=== PATIENT | female | born 1990 | race African-American/Black ===

== ENCOUNTER 2016-06-10 21:16 | Emergency (ER) | payer BC, OTHER ==
[2016-06-10 21:22] VITALS: BP 111/59; PULSE 57; TEMP 98; BMI 23.8
--- NOTE | 2016-06-10 21:47 | PDOC ---
History of Present Illness - General Chief Complaint: Ear Problem Stated Complaint: RT EAR PAIN Time Seen by Provider: 06/10/16 21:35 History Source: Patient Exam Limitations: No Limitations - History of Present Illness Initial Comments: 06/10/16 21:46 Chief complaint: Sore throat and right ear pain History of present illness: Patient is a 26-year-old female with no significant medical history here today complaining of sore throat and her right ear pain with tenderness of her lymph nodes near her right ear 3 days. Patient denies any cough, nasal congestion, fever difficulty swallowing or breathing or any nausea vomiting or diarrhea. Patient reports that a few people at her job have been ill. Patient denies any recent travel. Timing/Duration: intermittent (for 3 days) Severity: mild Associated Symptoms: reports: other (sore throat, rt. ear pain) Past History - Past Medical History Allergies/Adverse Reactions: Allergies Allergy/AdvReac Type Severity Reaction Status Date / Time No Known Allergies Allergy Verified 06/10/16 21:20 Home Medications: Ambulatory Orders NK [No Known Home Medication] 02/14/15 - Psycho/Social/Smoking Cessation Hx Anxiety: No Suicidal Ideation: No Smoking Status: No Smoking History: Never smoked Number of Cigarettes Smoked Daily: 0 Information on smoking cessation initiated: No Hx Alcohol Use: Yes Drug/Substance Use Hx: No Substance Use Type: Alcohol Review of Systems - Review of Systems Able to Perform ROS?: Yes Constitutional: No: Symptoms Reported HEENTM: Yes: Ear Pain (rt. ), Throat Pain Respiratory: No: Symptoms reported Cardiac (ROS): No: Symptoms Reported ABD/GI: No: Symptoms Reported : No: Symptoms Reported Musculoskeletal: No: Symptoms Reported Integumentary: No: Symptoms Reported Neurological: No: Symptoms reported *Physical Exam - Vital Signs Last Vital Signs Temp Pulse Resp BP Pulse Ox 98.0 F 57 L 14 111/59 99 06/10/16 21:20 06/10/16 21:20 06/10/16 21:20 06/10/16 21:20 06/10/16 21:20 - Physical Exam General Appearance: Yes: Appropriately Dressed HEENT: positive: TMs Normal (b// ), Pharyngeal Erythema. negative: Tonsillar Exudate, Tonsillar Erythema, Nasal Congestion, Rhinorrhea Neck: positive: Lymphadenopathy (R). negative: Lymphadenopathy (L) Respiratory/Chest: positive: Lungs Clear, Normal Breath Sounds. negative: Chest Tender, Respiratory Distress Cardiovascular: positive: Regular Rhythm, Regular Rate, S1, S2 Integumentary: positive: Normal Color Neurologic: positive: Alert, Normal Response, Responsive Medical Decision Making - Medical Decision Making 06/10/16 21:47 Patient is a 26-year-old female with no significant medical history here today complaining of sore throat and her right ear pain with tenderness of her lymph nodes near her right ear 3 days. Patient denies any cough, nasal congestion, fever difficulty swallowing or breathing or any nausea vomiting or diarrhea. Patient reports that a few people at her job have been ill. Patient denies any recent travel. Rule out strep throat viral pharyngitis, rt lympanopathy rt. cervical chain Plan: Throat C&S negative for strep 06/10/16 22:27 *DC/Admit/Observation/Transfer Diagnosis at time of Disposition: Viral pharyngitis, Lymphangitis - Discharge Dispostion Disposition: HOME Condition at time of disposition: Stable - Patient Instructions Additional Instructions: Rest and drink a lot of fluids Take acetaminophen as needed as directed by manufacturers service representative for pain Follow up with your primary within the next few days Return to emergency room if symptoms worsen any difficulty swallowing or any new symptoms develop Patient voiced understanding of discharge instructions all questions were answered
== END 2016-06-10 22:33 | disposition home or self-care (01) ==
LOC: JERFT 21:16
DX: J02.8 Acute pharyngitis due to other specified organisms (principal); B97.89 Other viral agents as the cause of diseases classified elsewhere; R59.1 Generalized enlarged lymph nodes
CPT/HCPCS: 87070; 87430; 99281-25

== ENCOUNTER 2016-06-19 22:52 | Emergency (ER) | payer OTHER ==
[2016-06-19 23:08] VITALS: BMI 24.1
--- NOTE | 2016-06-20 02:10 | PDOC ---
History of Present Illness - General Chief Complaint: Respiratory Stated Complaint: CHEST PAIN Time Seen by Provider: 06/20/16 00:21 History Source: Patient Exam Limitations: No Limitations - History of Present Illness Initial Comments: 06/20/16 02:05 26yo Female patient presents to ED c/o chest pains. Patient reports experiencing chest pains on and off for the past couple months, but today feels like an ache. She denies n/v/d, sweating, change in appetite, fever, diff breathing, back pain, dysuria, hematuria. LNMP: 1 week ago. Denies any other complaints. Timing/Duration: constant Severity: moderate Modifying Factors: worse with: cold therapy, eating, immobilization, medication , movement, rest, other Associated Symptoms: reports: chest pain. denies: denies symptoms, cough, diaphoresis, fever/chills, headaches, loss of appetite, malaise, nausea/vomiting , rash, seizure, shortness of breath, syncope, weakness, other Past History - Travel Traveled outside of the country in the last 30 days: No Close contact w/someone who was outside of country & ill: No - Past Medical History Allergies/Adverse Reactions: Allergies Allergy/AdvReac Type Severity Reaction Status Date / Time No Known Allergies Allergy Verified 06/19/16 23:06 Home Medications: Ambulatory Orders Esomeprazole Strontium 24.65 mg PO DAILY #30 capsule. 06/20/16 - Psycho/Social/Smoking Cessation Hx Anxiety: No Suicidal Ideation: No Smoking Status: No Smoking History: Never smoked Number of Cigarettes Smoked Daily: 0 Information on smoking cessation initiated: No Hx Alcohol Use: No Drug/Substance Use Hx: No Substance Use Type: Alcohol Review of Systems - Review of Systems Able to Perform ROS?: Yes Is the patient limited Korean proficient: No Constitutional: No: Chills, Fever Respiratory: No: Cough, Orthopnea, Shortness of Breath, SOB at Rest, Stridor, Wheezing, Hemoptysis Cardiac (ROS): Yes: Chest Pain. No: Lightheadedness, Palpitations, Syncope, Chest Tightness ABD/GI: No: Constipated, Diarrhea, Nausea, Poor Appetite, Poor Fluid Intake, Rectal Bleeding, Vomiting, Tarry Stools : No: Burning, Dysuria, Discharge, Frequency, Flank Pain, Hematuria, Urgency Musculoskeletal: No: Back Pain, Joint Pain, Joint Swelling, Muscle Pain, Muscle Weakness, Neck Pain Integumentary: No: Bruising, Dryness, Erythema, Rash Neurological: No: Headache, Numbness, Seizure, Weakness, Ataxia All Other Systems: Reviewed and Negative *Physical Exam - Vital Signs Last Vital Signs Temp Pulse Resp BP Pulse Ox 98.7 F 72 14 109/66 96 06/19/16 23:06 06/19/16 23:06 06/19/16 23:06 06/19/16 23:06 06/19/16 23:06 - Physical Exam General Appearance: Yes: Nourished, Appropriately Dressed. No: Apparent Distress, Mild Distress, Moderate Distress, Severe Distress Neck: positive: Trachea midline, Supple. negative: Decreased range of motion, Stridor, Lymphadenopathy (R), Lymphadenopathy (L) Respiratory/Chest: positive: Lungs Clear, Normal Breath Sounds. negative: Respiratory Distress, Accessory Muscle Use, Labored Respiration, Rapid RR Cardiovascular: positive: Regular Rhythm, Regular Rate. negative: Edema, JVD, Murmur Gastrointestinal/Abdominal: positive: Normal Bowel Sounds, Soft. negative: Distended, Guarding, Rebound, Tenderness Lymphatic: negative: Adenopathy Musculoskeletal: positive: Normal Inspection. negative: CVA Tenderness Extremity: positive: Normal Capillary Refill, Normal Inspection, Normal Range of Motion, Pelvis Stable. negative: Pedal Edema, Swelling Integumentary: positive: Normal Color, Dry, Warm. 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 NML intact, Fully Oriented, Alert, Normal Mood/ Affect, Normal Response, Motor Strength 5/5 ED Treatment Course - LABORATORY CBC & Chemistry Diagram: 06/20/16 02:00 06/20/16 02:00 - RADIOLOGY Radiology Studies Ordered: Category Date Time Status GALLBLADDER US [US] Stat Ultrasound 06/20/16 00:54 Taken Medical Decision Making - Medical Decision Making 06/20/16 02:47 Name: Trace Hurtado : 1990 Sex: F Study Date & Time: 06/20/201600:59:11 Description: GALLBLADDER US Manager Pacu: ([email or web address]) Begin of Report Content Referring Physician: Ovidio Ruiz Patient Name: Genesis Woodward THIS IS A PRELIMINARY REPORT FROM IMAGING SENIOR BIOSTATISTICIAN EXAM: Ultrasound abdomen right upper quadrant IMAGES: 37 EXAM DATE AND TIME: 2016-06-20 00:59:11.0 REASON FOR EXAM: Chest pain COMPARISON: None. FINDINGS: There are no stones or sludge visualized in the gallbladder. The gallbladder wall is normal in thickness measuring 2 mm. There is no pericholecystic fluid. Presence or absence of a sonographic Monae's sign was not reported The common bile duct is within normal limits measuring 3.6 mm. The liver, spleen, pancreas and visualized portions of the abdominal aorta and IVC are unremarkable THIS DOCUMENT HAS BEEN ELECTRONICALLY SIGNED Austin Weller MD 06/20/2016 01:19 REY Devries Please call Imaging Radio News Writer [phone] ([phone]) with questions. *DC/Admit/Observation/Transfer Diagnosis at time of Disposition: Atypical chest pain - Discharge Dispostion Disposition: HOME Condition at time of disposition: Good Admit: No - Prescriptions Prescriptions: Esomeprazole Strontium 24.65 mg PO DAILY #30 capsule.dr - Patient Instructions Printed Discharge Instructions: DI for Atypical Chest Pain Additional Instructions: FOLLOW UP WITH YOUR PRIMARY CARE PROVIDER. TAKE MEDICATIONS PRESCRIBED. Print Language: GHANAIAN - Post Discharge Activity Work/School Note: Back to Work
[2016-06-20 02:16] LABS: URINE APPEARANCE CLEAR; URINE BILIRUBIN NEGATIVE (NEGATIVE); URINE COLOR LTYELLOW; URINE GLUCOSE (UA) NEGATIVE (NEGATIVE); URINE KETONE TRACE (NEGATIVE); URINE NITRITE NEGATIVE (NEGATIVE); URINE PROTEIN NEGATIVE (NEGATIVE); URINE UROBILINOGEN NEGATIVE E.U./dl (0.2-1.0)
[2016-06-20 02:17] LABS: MCH 31.2 pg (25.7-33.7); MCHC 33.6 g/dl (32.0-36.0); MEAN CELL VOLUME 92.9 fl (80-96); MEAN PLT VOLUME 7.7 fl (7.5-11.1); PLATELET COUNT 293 K/MM3 (134-434); RDW 12.5 % (11.6-15.6); WHITE BLOOD COUNT 6.1 K/mm3 (4.0-10.0)
[2016-06-20 02:22] LABS: URINE BLOOD 1+ (NEGATIVE); URINE LEUK ESTERASE 1+ (NEGATIVE)
[2016-06-20 02:25] LABS: URINE HYALINE CAST 1 /lpf; URINE MUCUS RARE; URINE RBC 5 /hpf (0-3); URINE WBC 4 /hpf (3-5)
[2016-06-20 02:42] LABS: CALCIUM 8.5 mg/dL (8.5-10.1); CREATININE 0.7 mg/dL (0.55-1.02)
[2016-06-20 03:01] LABS: TROPONIN I < 0.02 ng/ml (0.00-0.05)
[2016-06-20 03:11] VITALS: BP 99/71; PULSE 92; TEMP 98
--- NOTE | 2016-06-20 16:14 | EKG ---
Test Reason : Blood Pressure : / mmHG Vent. Rate : 070 BPM Atrial Rate : 070 BPM P-R Int : 162 ms QRS Dur : 080 ms QT Int : 396 ms P-R-T Axes : 016 058 029 degrees QTc Int : 427 ms NORMAL SINUS RHYTHM T WAVE ABNORMALITY, CONSIDER ANTERIOR ISCHEMIA ABNORMAL ECG WHEN COMPARED WITH ECG OF 14-FEB-2015 18:08, INVERTED T WAVES HAVE REPLACED NONSPECIFIC T WAVE ABNORMALITY IN ANTERIOR LEADS Confirmed by YASMINE LINDO, ROCIO ([id number]) on 06/20/2016 4:14:24 PM Referred By: Confirmed By:ROCIO UNDERWOOD MD
== END 2016-06-20 03:11 | disposition home or self-care (01) ==
LOC: JER 22:52
DX: R07.89 Other chest pain (principal)
CPT/HCPCS: 36415; 76705-TC; 80048; 81003; 81015; 82150; 82550; 83690; 84484; 84703; 85027; 93005; 93010; 99281-25

== ENCOUNTER 2019-03-11 20:29 | Emergency (ER) | payer OTHER ==
--- NOTE | 2019-03-11 20:51 | PDOC ---
Rapid Medical Evaluation Chief Complaint: Pain Time Seen by Provider: 03/11/19 20:49 Medical Evaluation: Allergies Allergy/AdvReac Type Severity Reaction Status Date / Time No Known Allergies Allergy Verified 06/19/16 23:06 03/11/19 20:49 I have performed a brief in-person evaluation of this patient. The patient presents with a chief complaint of:right ankle pain x 2 days, inversion Pertinent physical exam findings: pain to lateral and med malleolus I have ordered the following: ankle Xray The patient will proceed to the ED for further evaluation. Discharge Disposition - Diagnosis Ankle pain, right - Discharge Dispostion Condition at time of disposition: Stable - Referrals - Patient Instructions - Post Discharge Activity
[2019-03-11 20:56] VITALS: BP 98/63; PULSE 66; TEMP 98.2; BMI 22.1
--- NOTE | 2019-03-11 21:26 | PDOC ---
History of Present Illness - General Chief Complaint: Pain Stated Complaint: RT ANKLE PAIN Time Seen by Provider: 03/11/19 20:49 History Source: Patient - History of Present Illness Initial Comments: 03/11/19 21:30 Chief complaint: Right ankle injury Patient is a healthy 28-year-old female who states she twisted her ankle 2 days ago and is painful to walk. Patient has not taken any pain medicine. Patient denies any other injuries. GENERAL/CONSTITUTIONAL: No fever, weakness. dizziness HEAD, EYES, EARS, NOSE AND THROAT: No change in vision. No ear pain or discharge. No sore throat. CARDIOVASCULAR: No chest pain RESPIRATORY: No shortness of breath or cough GASTROINTESTINAL: No pain, nausea, vomiting, diarrhea or constipation GENITOURINARY: No dysuria MUSCULOSKELETAL: No neck or back pain, + right ankle SKIN: No rash NEUROLOGIC: No headache, vertigo, loss of consciousness, or loss of sensation. GENERAL: The patient is awake, alert, and fully oriented, in no acute distress. HEAD: Normal with no signs of trauma. EYES: Pupils equal, round and reactive to light, sclera anicteric, conjunctiva clear. ENT: pharynx: no erythema, no exudate, uvula midline NECK: supple CHEST: clear, nontender, rr ABD: soft, nontender BACK: no tenderness or signs of injury EXTREMITIES: Right ankle with mild lateral malleolar swelling, tenderness, no fifth metatarsal tenderness, no tenderness over the dorsum of the foot, no tenderness to the rest of the right lower leg. Neurovascular intact. Rest of extremities, normal range of motion, no edema. NEUROLOGICAL: Normal speech, nonfocal, favoring right leg SKIN: Warm, Dry Past History - Past Medical History Allergies/Adverse Reactions: Allergies Allergy/AdvReac Type Severity Reaction Status Date / Time No Known Allergies Allergy Verified 03/11/19 21:29 Home Medications: Ambulatory Orders NK [No Known Home Medication] 03/11/19 COPD: No - Psycho Social/Smoking Cessation Hx Smoking Status: No Smoking History: Never smoked Have you smoked in the past 12 months: No Number of Cigarettes Smoked Daily: 0 Information on smoking cessation initiated: No Hx Alcohol Use: No Drug/Substance Use Hx: No Substance Use Type: Alcohol *Physical Exam - Vital Signs Last Vital Signs Temp Pulse Resp BP Pulse Ox 98.2 F 66 18 98/63 100 03/11/19 20:50 03/11/19 20:50 03/11/19 20:50 03/11/19 20:50 03/11/19 20:50 Procedures - Splinting Splint Location: Right: Ankle Pre-Proc Neuro Vasc Exam: normal Pre-Made Type: aircast Post-Proc Neuro Vasc Exam: normal Medical Decision Making - Medical Decision Making 03/11/19 21:31 Healthy 28-year-old female with right ankle injury, x-ray ordered X-ray shows no acute fracture, patient placed in Aircast, did not want crutches , able to ambulate better with Aircast Discussed issues, findings, results, applicable medications and treatments and follow-up. All these were understood and all questions were answered Discharge - Discharge Information Problems reviewed: Yes Clinical Impression/Diagnosis: Ankle pain, right Qualifiers: Chronicity: acute Qualified Code(s): M25.571 - Pain in right ankle and joints of right foot Condition: Stable Disposition: HOME - Admission No - Follow up/Referral Referrals: Marcia Land [Primary Care Provider] - Angus Hassan MD [Staff Physician] - - Patient Discharge Instructions Patient Printed Discharge Instructions: Arthrodesis of Foot and Ankle -- Open Surgery Additional Instructions: Elevate, wear splint You can apply ice for 20 minutes every 2 hours for the next 2 days Motrin 600 mg every 6 hours for pain. Call the orthopedist tomorrow - Post Discharge Activity
== END 2019-03-11 21:45 | disposition home or self-care (01) ==
LOC: JER 20:29
PROC: 2W3QX1Z Immobilization of Right Lower Leg using Splint (ICD-10-PCS; principal; 2019-03-11)
DX: M25.571 Pain in right ankle and joints of right foot (principal); X50.1XXA Overexertion from prolonged static or awkward postures, initial encounter; Y93.89 Activity, other specified; Y92.89 Other specified places as the place of occurrence of the external cause; Y99.8 Other external cause status
CPT/HCPCS: 73610-TC-RT-FY; 99282-25

== ENCOUNTER 2019-04-23 15:53 | Emergency (ER) | payer OTHER ==
[2019-04-23 16:00] VITALS: BP 108/73; PULSE 61; TEMP 98; BMI 21.6
--- NOTE | 2019-04-23 16:02 | PDOC ---
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
[2019-04-23 16:32] LABS: BASO % 0.3 % (0-2.0); EOS % 2.1 % (0-4.5); HEMATOCRIT 37.6 % (32.4-45.2); HEMOGLOBIN 12.4 GM/dL (10.7-15.3); MCH 31.7 pg (25.7-33.7); MCHC 33.1 g/dl (32.0-36.0); MEAN PLT VOLUME 7.8 fl (7.5-11.1); MONO % 3.4 % (3.8-10.2); NEUT % 77.2 % (42.8-82.8); PLATELET COUNT 355 K/MM3 (134-434); RBC 3.92 M/mm3 (3.60-5.2); RDW 12.6 % (11.6-15.6); WHITE BLOOD COUNT 7.7 K/mm3 (4.0-10.0)
[2019-04-23 16:58] LABS: ALBUMIN 4.2 g/dl (3.4-5.0); BILIRUBIN,TOTAL 0.2 mg/dL (0.2-1); BLOOD UREA NITROGEN 10.5 mg/dL (7-18); CALCIUM 9.4 mg/dL (8.5-10.1); CREATININE 0.7 mg/dL (0.55-1.3); POTASSIUM 4.4 mmol/L (3.5-5.1); TOT PROT 7.5 g/dl (6.4-8.2)
[2019-04-23] MEDS ORDERED: MAG HYDROX/AL HYDROX/SIMETH 30 ML UNIT-DOSE CUP PO ONE (17:09)
[2019-04-23] MEDS ORDERED: IBUPROFEN 600 MG TABLET (FP) PO ONE ×2 (17:09→17:11)
[2019-04-23] MEDS ORDERED: MAG HYDROX/AL HYDROX/SIMETH 30 ML UNIT-DOSE CUP ONE (17:12)
--- NOTE | 2019-04-23 17:17 | PDOC ---
Documentation entered by Keiko Elder SCRIBE, acting as scribe for Sylwia Kitchen MD. Sylwia Kitchen MD: This documentation has been prepared by the Jerrod knox Xhesika, SCRIBE, under my direction and personally reviewed by me in its entirety. I confirm that the documentation accurately reflects all work, treatment, procedures, and medical decision making performed by me. History of Present Illness - General Chief Complaint: Pain Stated Complaint: ABD PAIN Time Seen by Provider: 04/23/19 15:58 History Source: Patient Exam Limitations: No Limitations - History of Present Illness Initial Comments: 04/23/19 17:20 HPI The patient is a 29 year old female with no past medical history who presents to the ED with LLQ abdominal pain and bloating since 9am. Pt describes her pain as crampy, feels like contractions, associated with back pain and headache , worsened with lifting her legs. Pt notes she has always endorsed constipation and had gastro problems all her life. pt notes she was seen at urgent care 2 years ago for similar symptoms and was told to follow up with gastroenteritis but never did. Pt notes her period finished 2 days ago. Pt notes her last normal BM was yesterday and it was dark in color. Pt notes she has been taking apetamin to gain weight. Pt denies lifting heavy weights. Denies fever, chills, chest pain, SOB, palpitations, dizziness, weakness, N, V, D, bladder and bowel problems, focal weakness/paresthesias, leg swelling/pain, rash. No sick contacts or travel. No new changes in medications. No suspicious food intake Allergies: None Past Medical History/PSH: none Social history: Lives with family. No tobacco, ETOH or drug use. Meds: as documented in EMR Family history: noncontributory Review of systems Constitutional: no fevers or chills. No weakness HEENT: no headache or dizziness. No congestion. No visual/hearing disturbances. CVS: no cp or syncope. Resp: no sob. No cough. Gastrointestinal: + L lower abdominal pain, + bloating. No nausea, vomiting, diarrhea. Genitourinary: no urinary sx, hematuria. MUSCULOSKELETAL: No joint pain and swelling. No neck. +back pain. SKIN: no redness or skin changes, no discharge, no rash. No wounds. Hematologic: no easy bruising/bleeding. NEUROLOGIC: +headache. No dizziness, LOC or altered mental status. No weakness, numbness or tingling. Psych: no anxiety or depression Allergic/Immunologic: no allergies All other systems reviewed and negative, or as documented in HPI. Physical exam General: Well appearing, awake and alert, NAD. HEENT: NCAT, PERRL, EOMI, clear conjunctiva, anicteric, moist mucus membranes, clear oropharynx, no oral lesions.. Neck: neck supple, FROM Resp: CTAB, normal and even respirations, no respiratory distress CVS: RRR, no murmurs, 2+ peripheral pulses throughout, no peripheral edema Abdomen: + LLQ tenderness to palpation. +typanic. soft, ND, no rebound or guarding. No CVAT. No palpable hernia Back: nontender, normal inspection and ROM Female : normal external genitalia, no lesions, clear vaginal vault, no CMT, no adnexal tenderness. Smooth and pink cervix, closed. MSK: no edema, [place] x4, ROM intact. No clubbing or cyanosis. normal bulk and tone. Extremities: no calf tenderness Neuro: alert, oriented appropriately; no focal neurologic deficits Psych: Calm and cooperative Skin: warm and well perfused, cap refill <2 sec, normal color 04/23/19 17:24 Past History - Past Medical History Allergies/Adverse Reactions: Allergies Allergy/AdvReac Type Severity Reaction Status Date / Time No Known Allergies Allergy Verified 04/23/19 16:00 Home Medications: Ambulatory Orders Mag Hydrox/Al Hydrox/Simeth [Mylanta Suspension -] 30 ml PO Q6H PRN #1 bottle COPD: No - Psycho Social/Smoking Cessation Hx Smoking Status: No Smoking History: Never smoked Have you smoked in the past 12 months: No Number of Cigarettes Smoked Daily: 0 Hx Alcohol Use: No Drug/Substance Use Hx: No Substance Use Type: Alcohol *Physical Exam - Vital Signs Last Vital Signs Temp Pulse Resp BP Pulse Ox 98 F 61 18 108/73 98 04/23/19 15:57 04/23/19 15:57 04/23/19 15:57 04/23/19 15:57 04/23/19 15:57 ED Treatment Course - LABORATORY CBC & Chemistry Diagram: 04/23/19 16:15 04/23/19 16:15 - ADDITIONAL ORDERS Additional order review: Laboratory Results 04/23/19 16:15 Sodium 142 Potassium 4.4 Chloride 106 Carbon Dioxide 30 Anion Gap 6 L BUN 10.5 Creatinine 0.7 Est GFR (CKD-EPI)AfAm 137.62 Est GFR (CKD-EPI)NonAf 118.74 Random Glucose 109 H Calcium 9.4 Total Bilirubin 0.2 AST 17 ALT 20 Alkaline Phosphatase 54 Total Protein 7.5 Albumin 4.2 04/23/19 16:15 RBC 3.92 MCV 96.0 MCHC 33.1 RDW 12.6 MPV 7.8 Neutrophils % 77.2 D Lymphocytes % 17.0 D Monocytes % 3.4 L Eosinophils % 2.1 Basophils % 0.3 Medical Decision Making - Medical Decision Making 04/23/19 17:17 Vital Signs Temp Pulse Resp BP Pulse Ox 98 F 61 18 108/73 98 04/23/19 15:57 04/23/19 15:57 04/23/19 15:57 04/23/19 15:57 04/23/19 15:57 ddx. ovarian cyst, torsion, constipation, infection, anemia, electrolyte abnormalities doubt pancreatitis or hepatitis, no upper abdominal pain VS wnl, afebrile, normotensive pain improving now, given additional analgesia, - ibuprofen and maalox. pt feels like it is gas related, as she has had "gastric problems" since she was a child no peritoneal findings only mild TTP in the left lower abdomen no inguinal or femoral hernia seen denies , just finished her menses pelvic sono limited, but no e/o torsion, gas overlying the LLQ otherwise unremarkable ultrasound pt feels improved, declines further imaging and prefers outpatient treatment and workup doubt/unlikely intra abdominal infection/inflammation, perf or obstruction. risks and benefits of CT imaging discussed, due to more risks with radiation and low yield of exam, without RLQ pain or peritoneal findings or abnormal results/vitals, will defer further testing at this time as pt has had chronic sx since childhood and needs to have appropriate followup Pt to be discharged in stable condition. Patient made aware of clinical impression, treatment recommendations and disposition plan, return precautions discussed (including but not limited to new or persistent/worsening symptoms, pain, fevers, or signs of infection, chest pain, respiratory distress, inability to tolerate oral intake, dehydration, syncope, or neurologic changes) . Follow up with PMD and/or GI specialist as recommended, follow up information provided, take medications as instructed for duration of time. continue with supportive care, avoid triggers and precipitants. All questions answered to patient's satisfaction and expressed understanding and comfort with this. At the time of discharge, the patient is alert, clinically improved, tolerating po and verbalizes understanding of instructions, satisfied with the care received and felt comfortable with the plan. Patient does not suffer from an acute life- threatening medical condition at this time and is safe for outpatient follow- up. 04/23/19 17:22 04/24/19 00:37 04/24/19 00:43 Discharge - Discharge Information Problems reviewed: Yes Clinical Impression/Diagnosis: Left lower quadrant abdominal pain Condition: Good Disposition: HOME - Admission No - Additional Discharge Information Prescriptions: Mag Hydrox/Al Hydrox/Simeth [Mylanta Suspension -] 30 ml PO Q6H PRN #1 bottle PRN Reason: Gas - Follow up/Referral Referrals: Marcia Land [Primary Care Provider] - Vineet Bailey DO [Staff Physician] - Juana Stack MD [Staff Physician] - Davonte Noble MD [Staff Physician] - Iraj Baldwin MD [Staff Physician] - - Patient Discharge Instructions Patient Printed Discharge Instructions: DI for Abdominal Pain-Adult Additional Instructions: you were evaluated in the department for your abdominal pain your blood work and labs were unremarkable ultrasound was also within normal limits, limited by gas overlying the left side your pain improved you can take ibuprofen or tylenol every 6 hours as needed for pain control. you can also take maalox every 6 hours as needed for pain control avoid potential triggers. return if worsening symptoms such as worsening abdominal pain, bleeding, vomiting, inability to tolerate oral or fluid intake, diarrhea, bloody stools, dehydration, confusion, chest pain, respiratory distress, dizziness, syncope. follow up with GI doctor - referrals given for your abdominal pain. - Post Discharge Activity Work/Back to School Note: Back to Work
== END 2019-04-23 17:25 | disposition home or self-care (01) ==
LOC: JER 15:53
DX: R10.32 Left lower quadrant pain (principal)
CPT/HCPCS: 36415; 76830-TC; 80053; 85025; 99282-25

== ENCOUNTER 2019-07-14 09:06 | Emergency (ER) | payer OTHER ==
[2019-07-14 09:29] VITALS: BP 110/68; PULSE 66; TEMP 98; BMI 22.3
--- NOTE | 2019-07-14 10:24 | PDOC ---
History of Present Illness - General Chief Complaint: Pain, Acute Stated Complaint: ABD PAIN/VOMITING Time Seen by Provider: 07/14/19 10:04 - History of Present Illness Initial Comments: 07/14/19 10:21 CHIEF COMPLAINT: abdominal pain HISTORY OF PRESENT ILLNESS: 29 yo F with no PMH presents to ED with abdominal pain and vomiting since last night. Patient reports taking two shots of patron and then waking up at 4 am with abdominal pain and persistent vomiting, approximately 9 times until she as "only vomiting that yellow stuff." Patient denies any urinary symptoms. No recent travel or sick contacts. PAST MEDICAL HISTORY: Denies past medical history FAMILY HISTORY: Denies SOCIAL HISTORY: Marijuana use, occasional alcohol use. Denies tobacco or other illicit drug use. SURGICAL HISTORY: surgical abortions ALLERGIES: No known drug allergies REVIEW OF SYSTEMS General/Constitutional: Denies fever or chills. Denies weakness, weight change. HEENT: Denies change in vision. Denies ear pain or discharge. Denies sore throat. Cardiovascular: Denies chest pain or shortness of breath. Respiratory: Denies cough, wheezing, or hemoptysis. Gastrointestinal: Vomiting and abdominal. Denies rectal bleeding. Genitourinary: Denies dysuria, frequency, or change in urination. Musculoskeletal: Denies joint or muscle swelling or pain. Denies neck or back pain. Skin and breasts: Denies rash or easy bruising. Neurologic: Denies headache, vertigo, loss of consciousness, or loss of sensation. Psychiatric: Denies depression or anxiety. PHYSICAL EXAM General Appearance: Well-appearing, appropriately dressed. No apparent distress. HEENT: EOMI, PERRLA, normal ENT inspection, normal voice, TMs normal, pharynx normal. No conjunctival pallor. No photophobia, scleral icterus. Neck: Supple. Trachea midline. No tenderness, rigidity, carotid bruit, stridor, lymphadenopathy, or thyromegaly. Respiratory/Chest: Lungs CTAB. No shortness of breath, chest tenderness, respiratory distress, accessory muscle use. No crackles, rales, rhonchi, stridor, wheezing, dullness Cardiovascular: RRR. S1, S2. No JVD, murmur, bradycardia, tachycardia. Vascular Pulses: Dorsalis-Pedis (R): 2+, Dorsalis-Pedis (L): 2+ Gastrointestinal/Abdominal: Normal bowel sounds. Abdomen soft, non-distended. No tenderness or rebound tenderness. No organomegaly, pulsatile mass, guarding, hernia, hepatomegaly, splenomegaly. Lymphatic: No adenopathy, tenderness. Musculoskeletal/Extremities: Normal inspection. FROM of all extremities, normal capillary refill. Pelvis Stable. No CVA tenderness. No tenderness to extremities, pedal edema, swelling, erythema or deformity. Integumentary: Appropriate color, dry, warm. 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 Fully oriented, alert. Appropriate mood/affect. Motor strength 5/5. No appreciable EOM palsy, facial droop or sensory deficit. Past History - Past Medical History Allergies/Adverse Reactions: Allergies Allergy/AdvReac Type Severity Reaction Status Date / Time No Known Allergies Allergy Verified 07/14/19 09:25 Home Medications: Ambulatory Orders Ondansetron [Zofran *Odt*] 4 mg SL TID PRN #21 od.tablet 07/14/19 COPD: No - Psycho Social/Smoking Cessation Hx Smoking Status: No Smoking History: Current some day smoker Have you smoked in the past 12 months: No Number of Cigarettes Smoked Daily: 0 Information on smoking cessation initiated: Yes Hx Alcohol Use: (had shots last night) Drug/Substance Use Hx: No Substance Use Type: Alcohol *Physical Exam - Vital Signs Last Vital Signs Temp Pulse Resp BP Pulse Ox 98 F 66 18 110/68 100 07/14/19 09:25 07/14/19 09:25 07/14/19 09:25 07/14/19 09:25 07/14/19 09:25 ED Treatment Course - LABORATORY CBC & Chemistry Diagram: 07/14/19 11:05 07/14/19 11:05 Medical Decision Making - Medical Decision Making 07/14/19 10:29 29 yo F with no PMH presents to ED with abdominal pain and vomiting since last night. -labs, urine -bentyl, zofran, toradol Labs unremarkable. UA/UCG negative. Patient reassessed after administration of meds. Patient reports feeling much better, requesting to eat and go home. Discharge - Discharge Information Problems reviewed: Yes Clinical Impression/Diagnosis: Vomiting Qualifiers: Vomiting type: unspecified Vomiting Intractability: non-intractable Nausea presence: unspecified Qualified Code(s): R11.10 - Vomiting, unspecified Condition: Stable Disposition: HOME - Admission No - Additional Discharge Information Prescriptions: Ondansetron [Zofran *Odt*] 4 mg SL TID PRN #21 od.tablet PRN Reason: Nausea And/Or Vomiting - Follow up/Referral Referrals: Marcia Land [Primary Care Provider] - - Patient Discharge Instructions Patient Printed Discharge Instructions: DI for Vomiting -- Adult - Post Discharge Activity
[2019-07-14] MEDS ORDERED: ONDANSETRON 4 MG/2 ML VIAL IVPUSH ONE (10:25)
[2019-07-14] MEDS ORDERED: KETOROLAC TROMETHAMINE 15 MG/ML VIAL IVPUSH ONE (10:25)
[2019-07-14] MEDS ORDERED: DICYCLOMINE HCL 20 MG TABLET PO ONE (10:25)
[2019-07-14] MEDS ORDERED: FAMOTIDINE 20 MG/50 ML IVPB 20 MG/50 ML MG IVPB ONE ×2 (10:29→10:43)
[2019-07-14] MEDS ORDERED: ONDANSETRON 4 MG/2 ML VIAL ONE (10:38)
[2019-07-14] MEDS ORDERED: KETOROLAC TROMETHAMINE 15 MG/ML VIAL ONE (10:38)
[2019-07-14] MEDS ORDERED: DICYCLOMINE HCL 10 MG CAPSULE ONE (10:43)
[2019-07-14] MEDS ORDERED: SODIUM CHLORIDE 0.9% 500 ML INFUS.BAG IV ONE (10:57)
[2019-07-14 11:14] LABS: BASO % 0.5 % (0-2.0); EOS % 0.2 % (0-4.5); HEMATOCRIT 38.5 % (32.4-45.2); HEMOGLOBIN 12.9 GM/dL (10.7-15.3); LYMPH % 8.5 % (8-40); MCH 31.9 pg (25.7-33.7); MCHC 33.5 g/dl (32.0-36.0); MEAN CELL VOLUME 95.2 fl (80-96); MEAN PLT VOLUME 7.8 fl (7.5-11.1); MONO % 2.3 % (3.8-10.2); NEUT % 88.5 % (42.8-82.8); PLATELET COUNT 317 K/MM3 (134-434); RBC 4.05 M/mm3 (3.60-5.2); RDW 12.5 % (11.6-15.6); WHITE BLOOD COUNT 8.6 K/mm3 (4.0-10.0)
[2019-07-14 11:43] LABS: ALBUMIN 4.4 g/dl (3.4-5.0); BILIRUBIN,TOTAL 0.3 mg/dL (0.2-1); CALCIUM 8.9 mg/dL (8.5-10.1); CREATININE 0.7 mg/dL (0.55-1.3); POTASSIUM 3.8 mmol/L (3.5-5.1); TOT PROT 8.1 g/dl (6.4-8.2)
[2019-07-14 12:30] LABS: URINE APPEARANCE CLEAR; URINE BILIRUBIN NEGATIVE (NEGATIVE); URINE COLOR YELLOW; URINE GLUCOSE (UA) NEGATIVE (NEGATIVE); URINE KETONE NEGATIVE (NEGATIVE); URINE LEUK ESTERASE NEGATIVE (NEGATIVE); URINE NITRITE NEGATIVE (NEGATIVE); URINE PROTEIN NEGATIVE (NEGATIVE); URINE UROBILINOGEN 0.2 mg/dL (0.2-1.0)
[2019-07-14 12:47] LABS: COCAINE, UR NEGATIVE ng/ml (CUTOFF=300); METHADONE, UR NEGATIVE ng/ml (CUTOFF=300); OPIATES, URI NEGATIVE ng/ml (CUTOFF=300); PHENCYCLIDINE,URINE NEGATIVE ng/ml (CUTOFF=25); URINE AMPHETAMINES NEGATIVE ng/ml (CUTOFF=500); URINE BARBITURATES NEGATIVE ng/ml (CUTOFF=200); URINE BENZODIAZEPINES NEGATIVE ng/ml (CUTOFF=200)
== END 2019-07-14 12:50 | disposition home or self-care (01) ==
LOC: JER 09:06
PROC: 3E0337Z Introduction of Electrolytic and Water Balance Substance into Peripheral Vein, Percutaneous Approach (ICD-10-PCS; principal; 2019-07-14)
PROC: 3E033GC Introduction of Other Therapeutic Substance into Peripheral Vein, Percutaneous Approach (ICD-10-PCS; 2019-07-14)
PROC: 3E0333Z Introduction of Anti-inflammatory into Peripheral Vein, Percutaneous Approach (ICD-10-PCS; 2019-07-14)
DX: R11.10 Vomiting, unspecified (principal)
CPT/HCPCS: 36415; 80053; 80307; 81003; 83690; 84703; 85025; 87086; 96365; 96375; 99284-25

== ENCOUNTER 2019-07-16 12:07 | Emergency (ER) | payer OTHER ==
[2019-07-16 12:39] VITALS: BP 124/71; PULSE 89; TEMP 98.9; BMI 21.6
[2019-07-16] MEDS ORDERED: IBUPROFEN 600 MG TABLET (FP) PO ONE ×2 (13:07→13:09)
--- NOTE | 2019-07-16 13:12 | PDOC ---
History of Present Illness - General Chief Complaint: Cold Symptoms Stated Complaint: COLD SYMPTOM Time Seen by Provider: 07/16/19 12:48 History Source: Patient Exam Limitations: No Limitations - History of Present Illness Initial Comments: 07/16/19 13:08 Patient is a 29-year-old female who presents to the ED with 2 days of body aches, chills, nasal drainage and cough. She states 1 week ago she was having a sore throat but that resolved. 3 days ago she began to have diarrhea. The remaining symptoms started 2 days ago. She does admit to chills but denies any documented fevers. She has taken Mucinex for her symptoms. She states she starts a job in 2 days and has to be better before then. She denies any past medical history or allergies to medications. Past History - Past Medical History Allergies/Adverse Reactions: Allergies Allergy/AdvReac Type Severity Reaction Status Date / Time No Known Allergies Allergy Verified 07/14/19 09:25 Home Medications: Ambulatory Orders Ondansetron [Zofran *Odt*] 4 mg SL TID PRN #21 od.tablet 07/14/19 COPD: No - Psycho Social/Smoking Cessation Hx Smoking Status: No Smoking History: Never smoked Have you smoked in the past 12 months: No Number of Cigarettes Smoked Daily: 0 Hx Alcohol Use: No Drug/Substance Use Hx: Yes ([place]) Substance Use Type: Alcohol Review of Systems - Review of Systems Comments:: 07/16/19 13:09 - Review of Systems Able to Perform ROS?: Yes Constitutional: No: Fever, Loss of Appetite, Night Sweats, Weakness, positive: Chills HEENTM: No: Eye Pain, Vision changes, Ear Pain, , Throat Swelling, Mouth Pain, Difficulty Swallowing; positive: Throat Pain Respiratory: No: Shortness of Breath, Wheezing, Sputum Production; positive: Cough Cardiac (ROS): No: Chest Pain, Chest Tightness, Palpitations, Irregular Heart Beat, Edema ABD/GI: No: Nausea, Vomiting, Abdominal Pain, resolved diarrhea : No Dysuria, No Hematuria, No Frequency, No Urgency Musculoskeletal: No: Muscle Pain, Back Pain, Joint Pain, Muscle Weakness, Neck Pain Integumentary: No: Lesions, Rash Neurological: No: Headache, Numbness, Tingling, Weakness, Speech Difficulties *Physical Exam - Vital Signs Last Vital Signs Temp Pulse Resp BP Pulse Ox 98.9 F 89 20 124/71 97 07/16/19 12:30 07/16/19 12:30 07/16/19 12:30 07/16/19 12:30 07/16/19 12:30 - Physical Exam 07/16/19 13:11 - Physical Exam General Appearance: Nourished, Appropriately Dressed, No Distress HEENT: EOMI, Normal Voice, moderate pharyngeal Erythema, No Muffled/Hoarse voice, No Tonsillar Exudate, moderate tonsillar Erythema, No Nasal Congestion, moderate clear rhinorrhea, Hearing Grossly Normal, TMs Normal, No TM Bulging, No TM Dullness, No TM Erythema Neck: Supple, No Lymphadenopathy (R), No Lymphadenopathy (L), No Rigidity, No Decreased range of motion Respiratory/Chest: Lungs Clear, Normal Breath Sounds. No Respiratory Distress, No Accessory Muscle Use; good air entry bilaterally. No wheezes/rales/rhonchi Cardiovascular: Regular Rhythm, Regular Rate, S1, S2 Gastrointestinal/Abdominal: Normal Bowel Sounds, Soft. Non-tender, No Guarding, No Rebound, No Rigidity Musculoskeletal: Normal Inspection. No Decreased Range of Motion Extremity: Normal Capillary Refill, Normal Inspection Integumentary: Normal Color, Dry. 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 Plan: -Flu and strep swab sent -Motrin given in the ED -Will reassess 07/16/19 13:56 The patient has been made aware that both her flu and strep swabs are negative. She should follow-up with her primary doctor within 1 to 2 days for repeat evaluation. She should increase fluids and get plenty of rest. She can take Tylenol or ibuprofen for fevers or body aches. She understands and agrees with this treatment plan and the patient is stable for discharge. Discharge - Discharge Information Problems reviewed: Yes Clinical Impression/Diagnosis: Viral syndrome Condition: Stable Disposition: HOME - Follow up/Referral Referrals: Marcia Land [Primary Care Provider] - 2 Days - Patient Discharge Instructions Patient Printed Discharge Instructions: DI for Viral Upper Respiratory Infection -- Adult - Post Discharge Activity Work/Back to School Note: Back to Work
== END 2019-07-16 14:02 | disposition home or self-care (01) ==
LOC: JERFT 12:07
DX: B34.9 Viral infection, unspecified (principal)
CPT/HCPCS: 87070; 87804; 87880; 99283-25